=== PATIENT | male | born 1995 | race African-American/Black ===

== ENCOUNTER 2016-11-18 07:55 | Emergency (ER) | payer BC ==
[~2016-11-18] VITALS: Ht 170.2 cm; Wt 63.5 kg
[2016-11-18 08:28] VITALS: BP 157/86
[2016-11-18] MEDS ORDERED: ACET-704 PO (08:45)
[2016-11-18] MEDS ORDERED: NAPR500T8 PO (08:45)
[2016-11-18] MEDS ORDERED: AMOX875T PO (08:45)
--- NOTE | 2016-11-18 08:45 | PHYS DOC ---
Past Medical History Past Medical History: No Pertinent History Past Surgical History: Other Additional Past Surgical Histo: dental Alcohol Use: None Drug Use: None Adult General Chief Complaint Chief Complaint: DENTAL PROBLEM HPI HPI Patient is a 21 year old male who presents with mild right lower gum dental pain that began one week ago. Patient states he has an appointment with his dentist next week. Patient denies any fever or trismus. Review of Systems Review of Systems Constitutional: Denies fever or chills [] Eyes: Denies change in visual acuity, redness, or eye pain [] HENT: right lower gum dental pain Musculoskeletal: Denies back pain or joint pain [] Integument: Denies rash or skin lesions [] Neurologic: Denies headache, focal weakness or sensory changes [] Endocrine: Denies polyuria or polydipsia [] Allergies Allergies Allergies Coded Allergies Type Severity Reaction Last Updated Verified No Known Drug Allergies 11/18/16 No Physical Exam Physical Exam Constitutional: Well developed, well nourished, no acute distress, non-toxic appearance. [] HENT: Normocephalic, atraumatic, bilateral external ears normal, oropharynx moist, no oral exudates, nose normal. [] Tooth #31 has cavities and has dental caries. No gum redness or swelling Skin: Warm, dry, no erythema, no rash. [] Back: No tenderness, no CVA tenderness. [] Extremities: No tenderness, no cyanosis, no clubbing, ROM intact, no edema. [] Neurologic: Alert and oriented X 3, normal motor function, normal sensory function, no focal deficits noted. [] Psychologic: Affect normal, judgement normal, mood normal. [] Current Patient Data Vital Signs Vital Signs Date Time Temp Pulse Resp B/P Pulse Ox O2 Delivery O2 Flow Rate FiO2 11/18/16 08:28 98.1 59 18 99 Room Air 98.1 EKG EKG [] Radiology/Procedures Radiology/Procedures [] Course & Med Decision Making Course & Med Decision Making Pertinent Labs and Imaging studies reviewed. (See chart for details) Patient was discharged with amoxicillin for dental infection. He was instructed to follow-up with his own dentist next week as scheduled. Dragon Disclaimer Dragon Disclaimer This electronic medical record was generated, in whole or in part, using a voice recognition dictation system. Departure Departure Impression: Primary Impression: Dentalgia Additional Impressions: Dental caries Dental cavities Disposition: HOME, SELF-CARE Condition: STABLE Referrals: NO PCP (PCP) Follow-up with your own dentist next week Patient Instructions: Dental Caries Additional Instructions: He was seen for dental pain. Please follow-up with her dentist in one week as scheduled. Make sure you complete your antibiotics. Come back to the ED if symptoms worsen. Scripts Acetaminophen With Codeine (Tylenol With Codeine #3 Tablet)1 Each Tablet1 Tab PO PRN Q6HRS PRN PAIN #30 TAB Prov:OCHOA SAEZ APRN 11/18/16 Naproxen 500 Mg Tablet.dr1 Tab PO BID #60 TAB Ref 1 Prov:OCHOA SAEZ APRN 11/18/16 Amoxicillin 875 Mg Tablet1 Tab PO BID #20 TAB Prov:OCHOA SAEZ APRN 11/18/16 Problem Qualifiers OCHOA SAEZ APRN Nov 18, 2016 08:45
== END 2016-11-18 08:59 | disposition home or self-care (01) ==
LOC: ER 07:55
DX: K02.9 Dental caries, unspecified (principal)
CPT/HCPCS: 99283

== ENCOUNTER 2021-09-19 15:26 | Emergency (ER) | payer SELFPAY ==
[~2021-09-19] VITALS: Ht 170.2 cm; Wt 70.4 kg
[~2021-09-19 15:26] MED LIST: ACET-704 PO; AMOX875T PO; NAPR500T8 PO
[2021-09-19] MEDS ORDERED: LIDOCAINE/EPI/TETRACAINE TOPICAL GEL 3 ML. TP ONE (15:45)
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
[2021-09-19] MEDS ORDERED: DIPHTH,PERTUSS(ACELL),TET TOX 0.5 ML DISP.SYRIN. VAX IM ONE (16:30)
[2021-09-19 16:32] VITALS: BP 138/78
== END 2021-09-19 16:48 | disposition home or self-care (01) ==
LOC: ER 15:26
DX: S71.112A Laceration without foreign body, left thigh, initial encounter (principal); Y28.8XXA Contact with other sharp object, undetermined intent, initial encounter; Y93.89 Activity, other specified; Y92.89 Other specified places as the place of occurrence of the external cause; Y99.8 Other external cause status
CPT/HCPCS: 12002; 73552; 90471; 90715; 99283-25